=== PATIENT | male | born 1990 | race Caucasian/White ===

== ENCOUNTER 2023-04-28 07:22 | Emergency (ER) | payer MEDICAID ==
[~2023-04-28] VITALS: Ht 182.9 cm; Wt 60.0 kg
[2023-04-28 07:27] VITALS: BP 138/80; PULSE 70; RESP 16; TEMP 97.6; O2SAT 99
[2023-04-28] MEDS ORDERED: AMOX500C2 PO (09:32)
[2023-04-28] MEDS ORDERED: TRAM50TA2 PO ×2 (09:32→09:44)
== END 2023-04-28 10:01 | disposition home or self-care (01) ==
LOC: ER 07:23
DX: K04.7 Periapical abscess without sinus (principal); Z79.899 Other long term (current) drug therapy
CPT/HCPCS: 99283

== ENCOUNTER 2023-06-27 14:32 | Emergency (ER) | payer MEDICAID ==
[~2023-06-27] VITALS: Ht 185.4 cm; Wt 80.0 kg
[~2023-06-27 14:32] MED LIST: TRAM50TA2 PO
[2023-06-27 14:42] VITALS: BP 142/88; PULSE 90; RESP 18; TEMP 98.9; O2SAT 98
[2023-06-27] MEDS ORDERED: FLUT16SP2 BOTHNARES (17:49)
[2023-06-27] MEDS ORDERED: LEVO-65 PO (17:49)
[2023-06-27] MEDS ORDERED: METH4TAB3 PO (17:49)
== END 2023-06-27 18:59 | disposition home or self-care (01) ==
LOC: ER 18:52
DX: J32.8 Other chronic sinusitis (principal); Z79.899 Other long term (current) drug therapy
CPT/HCPCS: 99283